=== PATIENT | male | born 1985 | race Two or more races ===

== ENCOUNTER 2018-01-31 05:07 | Emergency (ER) | payer BC, MEDICAID ==
[~2018-01-31] VITALS: Ht 172.7 cm; Wt 90.7 kg
[2018-01-31 05:15] VITALS: BP 119/78
--- NOTE | 2018-01-31 05:24 | Emergency Room Report ---
History of Present Illness General Chief Complaint: Abdominal Pain Source: Patient Present Illness HPI Patient presents with 2 days of abdominal pain. Severe at this time. Was recently hospitalized for 3 days and was told he had a small hole in his intestines. He did not get surgery. He was discharged on Augmentin and fluconazole. He's Not Taking Anything for Pain Recently. The Pain Is Severe and Diffuse. He's Not Vomited That He Feels Nauseated. Denies Any Melena or Hematochezia. The Patient Denies Chest Pain, Shortness of Breath, Cough, Sore Throat, Headache , Dysuria or Weakness. Hospitalized at [facility]. Allergies: Coded Allergies: No Known Allergies (Unverified , 01/31/18) Patient History Past Medical History: see triage record Social History: Reports: smoking, alcohol use; Denies: drug use Social History Narrative works in [employer] Reviewed Nursing Documentation: PMH: Agreed; PSxH: Agreed Nursing Documentation-PMH Past Medical History: No Stated History Review of Systems All Other Systems: negative except mentioned in HPI Physical Exam Vital Signs Date Time Temp Pulse Resp B/P (MAP) Pulse Ox O2 Delivery O2 Flow Rate FiO2 01/31/18 05:09 97.7 73 16 143/83 98 Room Air 97.7 Sp02 EP Interpretation: reviewed, normal General Appearance: alert, GCS 15, mild distress Head: normocephalic Eyes: bilateral eye normal inspection, bilateral eye PERRL ENT: moist mucus membranes Neck: supple Respiratory: lungs clear, normal breath sounds Cardiovascular #1: regular rate, rhythm Cardiovascular #2: 2+ radial (R) Gastrointestinal: normal inspection, normal bowel sounds, non tender, no mass, non-distended Musculoskeletal: back normal, gait/station normal, normal range of motion Neurologic: alert, oriented x3, grossly normal Psychiatric: mood/affect normal - In pain, anxious Skin: other - clamped down, pale nail beds Medical Decision Making Diagnostic Impression: Primary Impression: Abdominal pain Qualified Codes: R10.84 - Generalized abdominal pain Additional Impression: Diverticulitis ER Course Patient presents with diffuse abdominal pain with a history of possible perforation. At this point he doesn't have a surgical abdomen. He does have significant pain however differential includes diverticulitis, gastritis, pancreatitis amongst others. Patient be evaluated with labs and a CT the abdomen with oral and IV contrast. He'll be treated with Pepcid, IV hydration and Zofran with morphine and Mylanta. Pain much improved with morphine and medications. UA pending as is CT. Patient signed out to Dr. Proctor. Laboratory Tests Test 01/31/18 05:45 01/31/18 06:30 White Blood Count 11.3 K/UL (4.8-10.8) H Red Blood Count 5.85 M/UL (4.70-6.10) Hemoglobin 17.5 G/DL (14.2-18.0) Hematocrit 51.4 % (42.0-52.0) Mean Corpuscular Volume 88 FL (80-99) Mean Corpuscular Hemoglobin 30.0 PG (27.0-31.0) Mean Corpuscular Hemoglobin Concent 34.1 G/DL (32.0-36.0) Red Cell Distribution Width 11.6 % (11.6-14.8) Platelet Count 507 K/UL (150-450) H Mean Platelet Volume 5.5 FL (6.5-10.1) L Neutrophils (%) (Auto) 75.2 % (45.0-75.0) H Lymphocytes (%) (Auto) 17.9 % (20.0-45.0) L Monocytes (%) (Auto) 4.9 % (1.0-10.0) Eosinophils (%) (Auto) 1.4 % (0.0-3.0) Basophils (%) (Auto) 0.7 % (0.0-2.0) Prothrombin Time 10.7 SEC (9.30-11.50) Prothrombin Time INR 1.0 (0.9-1.1) PTT 28 SEC (23-33) Sodium Level 141 MMOL/L (136-145) Potassium Level 3.7 MMOL/L (3.5-5.1) Chloride Level 105 MMOL/L (98-107) Carbon Dioxide Level 28 MMOL/L (21-32) Anion Gap 8 mmol/L (5-15) Blood Urea Nitrogen 13 mg/dL (7-18) Creatinine 1.1 MG/DL (0.55-1.30) Estimate Glomerular Filtration Rate > 60 mL/min (>60) Glucose Level 97 MG/DL (74-106) Calcium Level 8.9 MG/DL (8.5-10.1) Total Bilirubin 0.3 MG/DL (0.2-1.0) Aspartate Amino Transferase (AST) 26 U/L (15-37) Alanine Aminotransferase (ALT) 62 U/L (12-78) Alkaline Phosphatase 125 U/L (46-116) H Total Creatine Kinase 41 U/L (26-308) Total Protein 8.5 G/DL (6.4-8.2) H Albumin 3.5 G/DL (3.4-5.0) Globulin 5.0 g/dL Albumin/Globulin Ratio 0.7 (1.0-2.7) L Lipase 226 U/L (73-393) Serum Alcohol < 3 mg/dL Urine Color Pending Urine Appearance Pending Urine pH Pending Urine Specific [place] Pending Urine Protein Pending Urine Glucose (UA) Pending Urine Ketones Pending Urine Blood Pending Urine Nitrite Pending Urine Bilirubin Pending Urine Urobilinogen Pending Urine Leukocyte Esterase Pending Urine Opiates Screen Pending Urine Barbiturates Screen Pending Phencyclidine (PCP) Screen Pending Urine Amphetamines Screen Pending Urine Benzodiazepines Screen Pending Urine Cocaine Screen Pending Urine Marijuana (THC) Screen Pending Last Vital Signs Date Time Temp Pulse Resp B/P (MAP) Pulse Ox O2 Delivery O2 Flow Rate FiO2 01/31/18 09:32 97.6 62 16 92/67 98 Room Air 97.6 Status: improved Disposition: HOME, SELF-CARE Condition: Improved Scripts Magnesium Citrate (MAGNESIUM CITRATE) 296 Ml Solution 150 ML PO DAILY for 2 Days, UNIT Prov: Mahesh Proctor MD 01/31/18 Terrence Dietrich M.D. Jan 31, 2018 05:24
[2018-01-31] MEDS ORDERED: Mylanta II UD 30ml ORAL ONE (05:30)
[2018-01-31] MEDS ORDERED: Morphine Sulfate 4mg/ml Inj (IV/IM USE ONLY) IVP ONE (05:30)
[2018-01-31] MEDS ORDERED: Isovue-300 100ml vial INJ PRN (05:30)
[2018-01-31 06:01] VITALS: BP 114/69
[2018-01-31 06:05] LABS: BASOPHILS % (AUTO) 0.7 % (0.0-2.0); EOSINOPHILS % (AUTO) 1.4 % (0.0-3.0); HEMATOCRIT 51.4 % (42.0-52.0); HEMOGLOBIN 17.5 G/DL (14.2-18.0); LYMPHOCYTES % (AUTO) 17.9 % (20.0-45.0); MEAN CORPUSCULAR VOLUME 88 FL (80-99); MONOCYTES % (AUTO) 4.9 % (1.0-10.0); NEUTROPHILS % (AUTO) 75.2 % (45.0-75.0); PLATELET COUNT 507 K/UL (150-450); RED BLOOD COUNT 5.85 M/UL (4.70-6.10); RED CELL DISTRIBUTION WIDTH 11.6 % (11.6-14.8); WHITE BLOOD COUNT 11.3 K/UL (4.8-10.8)
[2018-01-31 06:19] LABS: ANION GAP 8 mmol/L (5-15); BLOOD UREA NITROGEN 13 mg/dL (7-18); CALCIUM 8.9 MG/DL (8.5-10.1); CARBON DIOXIDE 28 MMOL/L (21-32); CHLORIDE 105 MMOL/L (98-107); CREATININE 1.1 MG/DL (0.55-1.30); POTASSIUM 3.7 MMOL/L (3.5-5.1); SODIUM 141 MMOL/L (136-145)
[2018-01-31 06:24] LABS: ALANINE AMINOTRANSFERASE 62 U/L (12-78); ALBUMIN 3.5 G/DL (3.4-5.0); ALBUMIN/GLOBULIN RATIO 0.7 (1.0-2.7); ALKALINE PHOSPHATASE 125 U/L (46-116); ASPARTATE AMINO TRANSFERASE 26 U/L (15-37); BILIRUBIN,TOTAL 0.3 MG/DL (0.2-1.0); CREATINE KINASE 41 U/L (26-308)
[2018-01-31 06:48] LABS: APPEARANCE,URINE CLEAR; BILIRUBIN, URINE NEGATIVE (NEGATIVE); COLOR,URINE PALE YELLOW; GLUCOSE, URINE (UA) NEGATIVE (NEGATIVE); KETONES,URINE NEGATIVE (NEGATIVE); LEUKOCYTE ESTERASE ,URINE 1+ (NEGATIVE); NITRITE,URINE NEGATIVE (NEGATIVE); PH,URINE 6 (4.5-8.0); PROTEIN,URINE NEGATIVE (NEGATIVE); UROBILINOGEN,URINE NORMAL MG/DL (0.0-1.0)
[2018-01-31 07:03] VITALS: BP 94/50
[2018-01-31 08:49] VITALS: BP 92/67
--- NOTE | 2018-01-31 08:57 | Diagnostic Imaging Report ---
Clinical Indication: Abdominal pain for 2 days, severe Technique: Patient given oral contrast. IV administration nonionic contrast. Venous phase spiral acquisition obtained through the abdomen and pelvis. Multiplanar reconstructions were generated. Total dose length product 1035.9 mGycm. CTDIvol(s) 17.49 mGy. Dose reduction achieved using automated exposure control Comparison: none Findings: There is colonic diverticulosis. There is an area of wall thickening of the mid to distal sigmoid with inflammation of the surrounding fat. A gas bubble protrudes beyond the colonic lumen, but this is probably within the ascending diverticulum rather than truly extraluminal. No other evidence of extraluminal gas. No fluid collection to suggest abscess. There is diffuse mild distention of small bowel extending all the way to the terminal ileum. Contrast is seen in the proximal small bowel but not the distal small bowel, but there is contrast in the colon as far distally as the distal rectum. No small bowel wall thickening is evident. The distal esophagus, stomach, duodenum are unremarkable. There is a small paraumbilical hernia which contains only fat The liver demonstrates a few subcentimeter low-attenuation lesions which are too small to characterize. The gallbladder is mildly distended, but there are no stones, wall thickening, nor pericholecystic inflammation. No biliary ductal dilatation. The pancreas, spleen, adrenals are unremarkable. There is mild ectasia of the left ureter, but no downstream obstructive lesion is demonstrated and there is no hydronephrosis. No focal renal abnormality is demonstrated. No pelvic mass or adenopathy. The included lung bases are clear. The bones are unremarkable except for a few small bilateral femoral bone islands.. Impression: Findings compatible with acute sigmoid diverticulitis Diffuse small bowel distention, likely mild ileus related to the above, although there appears to be no delay in small bowel transit. Mild ectasia of the left ureter, without evidence of downstream obstructive lesion or hydronephrosis. Significance doubted Subcentimeter low-attenuation lesions in the liver, too small to characterize, most likely benign simple cysts or bile hamartomas Incidental findings as noted, including small bilateral femoral bone islands, small fat-containing paraumbilical hernia Findings discussed by phone with Dr. Proctor in the emergency room at the time of interpretation The CT scanner at [facility] is accredited by the [employer] and the scans are performed using protocols designed to limit radiation exposure to as low as reasonably achievable to attain images of sufficient resolution adequate for diagnostic evaluation.
[2018-01-31] MEDS ORDERED: MAGNESIUM CITR296 M1 PO (09:29)
[2018-01-31 09:32] VITALS: BP 92/67
== END 2018-01-31 09:59 | disposition home or self-care (01) ==
LOC: EDBD 05:07 → EMR 05:20
DX: K57.92 Diverticulitis of intestine, part unspecified, without perforation or abscess without bleeding (principal); R10.84 Generalized abdominal pain
CPT/HCPCS: 36415; 74177; 80053; 80307; 81003; 82550; 83690; 85025; 85610; 85730; 86850; 86900; 86901; 96361; 96374; 96375; 99284; G0480; J2270; J2405; Q9967; S0028; 80329

== ENCOUNTER 2018-04-30 04:20 | Emergency (ER) | payer OTHER, MEDICAID ==
[~2018-04-30] VITALS: Ht 170.2 cm; Wt 90.7 kg
[~2018-04-30 04:20] MED LIST: MAGNESIUM CITR296 M1 PO
--- NOTE | 2018-04-30 04:20 | NUR ---
ED Nurse Note: Pain r/t diverticulitis, out of medication. 11/24. pt stated there are no abnormalities with stool, and denies throwing up. pt states he just has abdominal pain that is located on his abdomen and radiate to his lower left abdomen. no skin issues noted. pt also denies nausea.
[2018-04-30 04:23] VITALS: BP 157/96
[2018-04-30] MEDS ORDERED: Morphine Sulfate 4mg/ml Inj (IV/IM USE ONLY) IVP ONE ×2 (04:30→05:30)
--- NOTE | 2018-04-30 04:34 | Emergency Room Report ---
History of Present Illness General Chief Complaint: Abdominal Pain Source: Patient Present Illness HPI Is a 33-year-old male with a history of diverticulitis. First diagnosed in January. He was admitted an outside hospital for 2 days and was told that there is a "hole" in his intestine. He then was discharged on antibiotics of present here [address] scan here show acute diverticulitis but no evidence of perforation. He did well on discharge. Now presents with left lower quadrant pain for the last 2 days. Pain is 9 out of 10. Rating to the left upper quadrant. Has nausea and vomiting. Worse with palpation and movement. No diarrhea. No fever. Has not take anything for the pain. Allergies: Coded Allergies: No Known Allergies (Unverified , 01/31/18) Patient History Past Medical History: see triage record, old chart reviewed Past Surgical History: none Pertinent Family History: none Social History: Denies: smoking Immunizations: other Reviewed Nursing Documentation: PMH: Agreed; PSxH: Agreed Nursing Documentation-PM Past Medical History: No History, Except For Hx Gastrointestinal Problems: Yes Review of Systems Eye: Denies: eye pain, blurred vision ENT: Denies: ear pain, nose congestion, throat swelling Respiratory: Denies: cough, shortness of breath Cardiovascular: Denies: chest pain, palpitations Gastrointestinal: Reports: abdominal pain, nausea, vomiting; Denies: diarrhea Musculoskeletal: Denies: back pain, joint pain Skin: Denies: rash Neurological: Denies: headache, numbness Endocrine: Denies: increased thirst, increased urine Hematologic/Lymphatic: Denies: easy bruising All Other Systems: negative except mentioned in HPI Physical Exam Vital Signs Date Time Temp Pulse Resp B/P (MAP) Pulse Ox O2 Delivery O2 Flow Rate FiO2 04/30/18 04:18 98.1 75 18 157/96 98 Room Air 04/30/18 04:23 99 vitals normal except for high blood pressure Sp02 EP Interpretation: reviewed, normal General Appearance: well appearing, no apparent distress, alert Head: normocephalic, atraumatic Eyes: bilateral eye PERRL, bilateral eye EOMI ENT: hearing grossly normal, normal pharynx Neck: full range of motion, supple, no meningismus Respiratory: chest non-tender, lungs clear, normal breath sounds Cardiovascular #1: regular rate, rhythm, no murmur Gastrointestinal: normal bowel sounds, no mass, no organomegaly, no bruit, non- distended, tenderness - Left lower quadrant Musculoskeletal: back normal, gait/station normal, normal range of motion Psychiatric: mood/affect normal Skin: warm/dry Medical Decision Making Diagnostic Impression: Primary Impression: Diverticulitis Additional Impression: Abdominal pain Qualified Codes: R10.32 - Left lower quadrant pain ER Course Patient with abdominal pain. CT scan showed mild sigmoid diverticulitis. He has no local tenderness. We'll discharge home. No evidence of any perforation. Because of his recurrence of diverticulitis in such a young age, he would benefit from referral to see help desk assistant for colonoscopy to rule out a neoplastic process or inflammatory bowel disease. Lab Results Impression labs unremarkable CT/MRI/US Diagnostic Results CT/MRI/US Diagnostic Results : Imaging Test Ordered: CT abdomen and pelvis Impression Read by radiologist. Mild paracolic infiltrate changes regional to the mid to distal sigmoid colon. Slightly improved since prior exam. Umbilical hernia. Last Vital Signs Date Time Temp Pulse Resp B/P (MAP) Pulse Ox O2 Delivery O2 Flow Rate FiO2 04/30/18 04:23 75 18 Room Air 99 04/30/18 04:23 98.1 157/96 98 Status: improved Disposition: HOME, SELF-CARE Condition: Stable Scripts Ibuprofen* (MOTRIN*) 600 Mg Tablet 600 MG ORAL THREE TIMES A DAY, #30 TAB 0 Refills Prov: Thomas Islas MD 04/30/18 Hydrocodone/Acetaminophen 5-325* (HYDROCODONE/ACETAMINOPHEN 5-325*) 1 Each Tablet 1 TAB ORAL Q6H PRN for For Pain, #10 TAB 0 Refills Prov: Thomas Islas MD 04/30/18 Metronidazole* (FLAGYL*) 500 Mg Tablet 500 MG ORAL BID, #14 TAB Prov: Thomas Islas MD 04/30/18 Ciprofloxacin Hcl* (CIPROFLOXACIN HCL*) 500 Mg Tablet 500 MG ORAL Q12H, #14 TAB 0 Refills Prov: Thomas Islas MD 04/30/18 Additional Instructions: Increase fluids. Increase fiber. Follow-up with your doctor in 7 days. He will need a referral to see a help desk assistant for colonoscopy. Return if symptom worsen. Thomas Islas MD Apr 30, 2018 04:34
[2018-04-30 05:07] LABS: BASOPHILS % (AUTO) 1.2 % (0.0-2.0); EOSINOPHILS % (AUTO) 2.8 % (0.0-3.0); HEMATOCRIT 44.7 % (42.0-52.0); HEMOGLOBIN 15.9 G/DL (14.2-18.0); LYMPHOCYTES % (AUTO) 36.5 % (20.0-45.0); MEAN CORPUSCULAR VOLUME 88 FL (80-99); NEUTROPHILS % (AUTO) 52.5 % (45.0-75.0); PLATELET COUNT 314 K/UL (150-450); RED BLOOD COUNT 5.06 M/UL (4.70-6.10); RED CELL DISTRIBUTION WIDTH 11.8 % (11.6-14.8); WHITE BLOOD COUNT 8.1 K/UL (4.8-10.8)
[2018-04-30 05:09] LABS: ANION GAP 6 mmol/L (5-15); BLOOD UREA NITROGEN 19 mg/dL (7-18); CALCIUM 8.6 MG/DL (8.5-10.1); CARBON DIOXIDE 30 MMOL/L (21-32); CHLORIDE 105 MMOL/L (98-107); POTASSIUM 3.4 MMOL/L (3.5-5.1); SODIUM 140 MMOL/L (136-145)
[2018-04-30 05:13] LABS: ALANINE AMINOTRANSFERASE 21 U/L (12-78); ALBUMIN 3.4 G/DL (3.4-5.0); ALBUMIN/GLOBULIN RATIO 0.9 (1.0-2.7); ALKALINE PHOSPHATASE 118 U/L (46-116); ASPARTATE AMINO TRANSFERASE 10 U/L (15-37); BILIRUBIN,TOTAL 0.2 MG/DL (0.2-1.0)
[2018-04-30 05:32] LABS: APPEARANCE,URINE CLEAR; BILIRUBIN, URINE NEGATIVE (NEGATIVE); COLOR,URINE PALE YELLOW; GLUCOSE, URINE (UA) NEGATIVE (NEGATIVE); KETONES,URINE NEGATIVE (NEGATIVE); LEUKOCYTE ESTERASE ,URINE NEGATIVE (NEGATIVE); NITRITE,URINE NEGATIVE (NEGATIVE); PH,URINE 6 (4.5-8.0); PROTEIN,URINE NEGATIVE (NEGATIVE); UROBILINOGEN,URINE NORMAL MG/DL (0.0-1.0)
[2018-04-30 06:11] VITALS: BP 134/94
[2018-04-30] MEDS ORDERED: Ciprofloxacin 500mg tab ORAL ONE (06:15)
[2018-04-30] MEDS ORDERED: metroNIDAZOLE 500mg tab ORAL ONE (06:15)
[2018-04-30] MEDS ORDERED: HYDROCODON-ACE1 EA15 ORAL (06:20)
[2018-04-30] MEDS ORDERED: IBUPROFEN600 MG ORAL (06:20)
[2018-04-30] MEDS ORDERED: CIPROFLOXACIN500 M2 ORAL (06:20)
[2018-04-30] MEDS ORDERED: METRONIDAZOLE500 MG ORAL (06:20)
--- NOTE | 2018-04-30 06:24 | NUR ---
ED Nurse Note: incorrectly took out 2, 500mg metronidazole tab. one tab returned and sanned back to pyxis.
[2018-04-30 06:32] VITALS: BP 130/95
[2018-04-30 06:33] VITALS: BP 130/95
--- NOTE | 2018-04-30 06:35 | NUR ---
ED Nurse Note: Pt is Dc per ERMD orders. pt has left with all belongings including DC notes and prescriptions. pt is able to teach back DC notes and prescription. pt is alert and oriented times 4. no skin issues reported in ER. pt is insructed to follow up with primary MD as soon as possible. pt is able to ambulate without any complications. pt is instructed to reported back to ER as soon as possible if any reoccurance of symptoms. Discharge instructions given to pt. Answered all questions. Verbalized undertsanding. No acute distress noted. pt vital signs, status and condition reported to ERMD prior to DC. ID band and IV removed.
--- NOTE | 2018-04-30 09:36 | Diagnostic Imaging Report ---
Indication: Abdominal pain Technique: Continuous helical transaxial imaging of the abdomen and pelvis was obtained from the lung bases to the pubic symphysis. No intravenous contrast was administered. Coronal 2-D reformats were also obtained. Automatic Exposure Control was utilized. Total Dose length Product (DLP): 669.[address] Dose Index Volume (CTDIvol): 13.45 mGy Comparison: none Findings: Lung bases are clear. Gallbladder is unremarkable. There is no nephrolithiasis or hydronephrosis. There is an umbilical hernia containing fat. This is just right of the umbilicus and the fat appears slightly hyperdense. Inflammation or incarceration of the hernia not excluded. Please correlate clinically. The appendix is normal. There is inflammation involving a segment of sigmoid colon with wall thickening and perisigmoid soft tissue stranding. Findings probably due to diverticulitis. There is no abscess identified. No free fluid free air or evidence of bowel obstruction on this examination. Mild thickening of the wall of the urinary bladder noted. IMPRESSION: Sigmoid diverticulitis. No abscess identified. Normal appendix. Fat-containing periumbilical hernia. Possible inflammation associated with this. Correlate clinically. [facility] has communicated the preliminary results to the Emergency Department. Their findings are largely concordant with this report. The CT scanner at [facility] is accredited by the [employer] and the scans are performed using dose optimization techniques as appropriate to a performed exam including Automatic Exposure control.
== END 2018-04-30 06:35 | disposition home or self-care (01) ==
LOC: EDBD 04:20 → EMR 04:52
DX: K57.32 Diverticulitis of large intestine without perforation or abscess without bleeding (principal); F17.200 Nicotine dependence, unspecified, uncomplicated
CPT/HCPCS: 36415; 74176; 80053; 81003; 83690; 85025; 96361; 96374; 96375; 96376; 99284; J2270; J2405